=== PATIENT | male | born 1935 | race Caucasian/White ===

== ENCOUNTER 2024-05-07 06:00 | Day surgery (SDC) | payer MEDICARE ==
[2024-05-07] MEDS ORDERED: Lactated Ringers 1,000 ML IV ONE (06:01)
[2024-05-07] MEDS ORDERED: fentaNYL 100 MCG/2 ML SDV ONE (07:28)
[2024-05-07] MEDS ORDERED: Propofol 200 MG/20 ML SDV ONE (07:28)
[2024-05-07] MEDS ORDERED: Lidocaine 1% 5 ML VIAL ONE (07:28)
[2024-05-07] MEDS ORDERED: Ondansetron 4 MG/2 ML SDV ONE ×2 (07:28→09:40)
[2024-05-07] MEDS ORDERED: Midazolam 1 MG/ML 2 ML SDV ONE (07:28)
[2024-05-07] MEDS ORDERED: ceFAZolin 2 GM Vial ONE (07:30)
[2024-05-07] MEDS ORDERED: Bupivacaine 0.25% 10 ML SDV ONE (07:38)
[2024-05-07] MEDS ORDERED: Bupivacaine 0.5% 30 ML SDV ONE (07:39)
[2024-05-07] MEDS ORDERED: Sodium Chloride 0.9% 10 ML Syringe FLUSH PRN (07:43)
[2024-05-07] MEDS ORDERED: fentaNYL 100 MCG/2 ML SDV IVPUSH PRN (07:44)
[2024-05-07] MEDS ORDERED: HYDROmorphone 0.5 MG/0.5 ML Syringe IVPUSH PRN (07:44)
[2024-05-07] MEDS ORDERED: Ondansetron 4 MG/2 ML SDV IVPUSH PRN (07:44)
[2024-05-07] MEDS ORDERED: Sodium Chloride 0.9% 1,000 ML IV SCH (07:45)
[2024-05-07] MEDS ORDERED: EPINEPHrine 1 MG/ML SDV ONE (08:07)
[2024-05-07] MEDS ORDERED: Ropivacaine 0.5% 5 MG/ML 30 ML SDV ONE (08:07)
[2024-05-07] MEDS ORDERED: ePHEDrine 50 MG/ML SDV ONE (08:09)
[2024-05-07] MEDS ORDERED: Phenylephrine 1% 10 MG/ML SDV ONE (08:10)
[2024-05-07] MEDS ORDERED: Sodium Chloride 0.9% 10 ML Syringe FLUSH SCH (09:00)
[2024-05-07] MEDS: Acetaminophen/HYDROcodone 325-5 MG Tab PO PRN (11:45)
== END 2024-05-07 12:31 | disposition home or self-care (01) ==
LOC: JD.SDS 06:00
PROVIDERS: ATTEND Orthopaedic Surgery
DX: S76.112A Strain of left quadriceps muscle, fascia and tendon, initial encounter (principal); I25.10 Atherosclerotic heart disease of native coronary artery without angina pectoris; E78.00 Pure hypercholesterolemia, unspecified; I10 Essential (primary) hypertension; F17.290 Nicotine dependence, other tobacco product, uncomplicated; Z79.82 Long term (current) use of aspirin; Z79.899 Other long term (current) drug therapy
CPT/HCPCS: 27385; 64447; 76000; 82947; A9270; J0171; J0690; J2250; J2371; J2405; J2704; J2795; J3010; J7120; 01320; 99100; J0665; J3490